=== PATIENT | female | born 1965 | race Caucasian/White ===

== ENCOUNTER 2017-11-24 12:21 | Emergency (ER) | payer MEDICARE, MEDICAID ==
[~2017-11-24] VITALS: Ht 165.1 cm; Wt 111.4 kg
[2017-11-24 12:25] VITALS: Ht 165.1 cm; Wt 111.4 kg
[2017-11-24] MEDS ORDERED: GLIPIZIDE10 MG PO (12:27)
[2017-11-24] MEDS ORDERED: PRINIVIL20 MG PO (12:27)
[2017-11-24] MEDS ORDERED: FORTAMET500 MG/BOT PO (12:27)
[2017-11-24] MEDS ORDERED: BAYER CHEWABLE81 MG PO (12:28)
[2017-11-24] MEDS ORDERED: MOBIC7.5 MG PO (12:28)
[2017-11-24] MEDS ORDERED: ULTRAM50 MG PO (12:28)
[2017-11-24] MEDS ORDERED: MYRBETRIQ50 MG PO (12:28)
[2017-11-24] MEDS ORDERED: K-TAB10 MEQ PO (12:29)
[2017-11-24 14:13] VITALS: BP 120/80
== END 2017-11-24 14:14 | disposition home or self-care (01) ==
LOC: D.ER 12:21
DX: S63.501A Unspecified sprain of right wrist, initial encounter (principal); W01.0XXA Fall on same level from slipping, tripping and stumbling without subsequent striking against object, initial encounter; Y93.89 Activity, other specified; Y92.019 Unspecified place in single-family (private) house as the place of occurrence of the external cause